=== PATIENT | male | born 1995 | race African-American/Black ===

== ENCOUNTER 2017-12-18 21:32 | Emergency (ER) | payer SELFPAY ==
[~2017-12-18] VITALS: Ht 182.9 cm; Wt 72.6 kg
[~2017-12-18 21:32] MED LIST: SULF1TAB35 PO
--- NOTE | 2017-12-18 21:43 | ED EENT ---
History of Present Illness General Stated Complaint: TROUBLE TALKING/BREATHING X6 DAYS Source: patient Exam Limitations: no limitations History of Present Illness Date Seen by Provider: Dec 18, 2017 Time Seen by Provider: 21:42 Initial Comments To ER with trouble swallowing and throat pain for 6 days. Timing/Duration: gradual Severity: moderate Location: throat Associated Symptoms: denies symptoms Allergies and Home Medications Allergies Coded Allergies: No Known Drug Allergies (Unverified , 12/30/12) Home Medications Cefuroxime Axetil 125 Mg/5 Ml Susp.recon, 250 MG PO BID for 10 Days, #200 Prescribed by: CAPO ROSE on 12/18/172158 Sulfamethoxazole/Trimethoprim 1 Each Tablet, 1 EACH PO BID, #14 Prescribed by: TAMI ABREU on 04/24/172049 Review of Systems Constitutional: see HPI Eyes: No Symptoms Reported Ears: No Symptoms Reported Nose: no symptoms reported Mouth: no symptoms reported Throat: see HPI, pain, swelling Respiratory: no symptoms reported Cardiovascular: no symptoms reported Musculoskeletal: no symptoms reported Past Nukogqh-Rkqeab-Accvzv Hx Patient Social History Type Used: Cigars 2nd Hand Smoke Exposure: No Recent Foreign Travel: No Contact w/Someone Who Travel: No Recent Hopitalizations: No Immunizations Up To Date Tetanus Booster (TDap): Unknown Seasonal Allergies Seasonal Allergies: No Surgeries History of Surgeries: No Respiratory History of Respiratory Disorde: No Cardiovascular History of Cardiac Disorders: No Neurological History of Neurological Disord: No Reproductive System Hx Reproductive Disorders: No Genitourinary History of Genitourinary Disor: No Gastrointestinal History of Gastrointestinal Di: No Musculoskeletal History of Musculoskeletal Dis: No Endocrine History of Endocrine Disorders: No HEENT History of HEENT Disorders: No Cancer History of Cancer: No Psychosocial History of Psychiatric Problem: No Integumentary History of Skin or Integumenta: No Blood Transfusions History of Blood Disorders: No Physical Exam Vital Signs Vital Sign - Last 12Hours 12/18/17 21:35 Pulse 130 Resp 18 Pulse Ox 97 O2 Delivery Room Air General Appearance: WD/WN, no apparent distress, other (hot potatoe voice noted ) Eyes: bilateral eye normal inspection, bilateral eye PERRL, bilateral eye EOMI Ears: bilateral ear auricle normal, bilateral ear canal normal, bilateral ear TM normal Mouth/Throat: trismus, other (there is uvular deviation to the right secondary to a large left peritonsillar abscess) Neck: non-tender, full range of motion, lymphadenopathy (R) Cardiovascular: no murmur, tachycardia Respiratory: normal breath sounds, no respiratory distress, no accessory muscle use Gastrointestinal: normal bowel sounds, non tender, soft Neurologic/Psychiatric: alert, normal mood/affect, oriented x 3 Skin: normal color, warm/dry Progress/Results/Core Measures Results/Orders My Orders Orders - CAPO ROSE APRN Amoxicillin/Clavulanate Tablet (Augmenti (12/18/17 22:00) Prednisone Tablet (Deltasone Tablet) (12/18/17 22:00) Prednisone Tablet (Deltasone Tablet) (12/18/17 21:55) Amoxicillin/Clavulanate Tablet (Augmenti (12/18/17 21:55) Medications Given in ED Current Medications Medications Dose Ordered Sig/Brayan Route Start Time Stop Time Status Last Admin Dose Admin Prednisone 40 mg ONCE ONCE PO 12/18/17 22:00 12/18/17 22:01 12/18/17 21:58 40 MG Vital Signs/I&O Vital Sign - Last 12Hours 12/18/17 21:35 Pulse 130 Resp 18 B/P (MAP) Pulse Ox 97 O2 Delivery Room Air Departure Communication (Admissions) Progress Notes 2141-patient is refusing IV start, refuses to allow drainage of left peritonsillar abscess, refuses hospital admission. I did discuss at length with him and his girlfriend the need for IV start the reasons why we need to start an IV so we can check labs, give IV contrast for CAT scan to better identify the abscess and surrounding structures, give IV antibiotics. Also advised he would likely need admission to the hospital for a couple of days of IV antibiotics and steroids since he's having trouble swallowing. His response is "no, fuck that man, I ain't bein admitted and y'all aint doin shit to my throat ". 2154- patient's girlfriend has tried to convince him to stay and be treated appropriately but he still refuses. He does agree to take oral antibiotics Impression Impression: Primary Impression: Left peritonsillar abscess Additional Impressions: Left against medical advice Refusal of treatment by patient Disposition: AGAINST MEDICAL ADVICE Condition: Against Medical Advice Departure-Patient Inst. Decision time for Depature: 21:43 Referrals: NO,LOCAL PHYSICIAN (PCP/Family) Primary Care Physician Patient Instructions: Peritonsillar Abscess, Adult (DC) Scripts Cefuroxime Axetil (Cefuroxime Axetil) 125 Mg/5 Ml Susp.recon 250 MG PO BID for 10 Days, #200 ML Prov: CAPO ROSE APRN 12/18/17 CAPO ROSE APRN Dec 18, 2017 21:43
[2017-12-18] MEDS ORDERED: AUGMENTIN 875 MG TAB (AMOXICILLIN/CLAVULANATE) ONE (21:55)
[2017-12-18] MEDS ORDERED: predniSONE 20 MG TAB ONE (21:55)
[2017-12-18] MEDS ORDERED: CEFU125S2 PO (21:59)
[2017-12-18 22:00] VITALS: BP 0/0
[2017-12-18] MEDS ORDERED: AUGMENTIN 875 MG TAB (AMOXICILLIN/CLAVULANATE) PO SCH (22:00)
[2017-12-18] MEDS ORDERED: predniSONE 20 MG TAB PO ONE (22:00)
== END 2017-12-18 22:00 | disposition left against medical advice (07) ==
LOC: EDUNIT# 21:32 → ER 21:34
DX: J36 Peritonsillar abscess (principal)
CPT/HCPCS: 99283

== ENCOUNTER 2021-11-06 12:52 | Emergency (ER) | payer SELFPAY ==
[~2021-11-06 12:52] MED LIST changes: +CEFU125S2 PO; -SULF1TAB35 PO; +SULF1TAB38 PO
[2021-11-06] MEDS ORDERED: ACHD5005 PO (13:25)
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
[2021-11-06 13:45] VITALS: BP 134/61
--- NOTE | 2021-11-06 13:56 | Diagnostic Imaging Report ---
INDICATION: Injury, right hand pain 3 views of the right hand show deformity of the distal 5th metacarpal consistent with mildly angulated fracture. Joint is not involved. No other acute abnormality is seen. IMPRESSION: There is mildly angulated fracture of the distal 5th metacarpal. Dictated by: Dictated on workstation # [id number]
== END 2021-11-06 13:48 | disposition home or self-care (01) ==
LOC: EDUNIT# 12:52 → ER 12:53
DX: S62.306A Unspecified fracture of fifth metacarpal bone, right hand, initial encounter for closed fracture (principal); F17.210 Nicotine dependence, cigarettes, uncomplicated; W22.09XA Striking against other stationary object, initial encounter
CPT/HCPCS: 73130